=== PATIENT | male | born 1975 | race Caucasian/White ===

== ENCOUNTER 2020-02-18 13:37 | Emergency (ER) | payer OTHER ==
[~2020-02-18 13:37] MED LIST: ALPRAZOLAM0.5 MG PO; CYCLOBENZAPRINE5 MG PO; FLEXERIL 10 MG10 MG PO; NAPROSYN500 MG PO; PROVENTIL HFA6.7 GM INH; Voltaren Gel 1 % TOP
== END 2020-02-18 13:48 | disposition left against medical advice (07) ==
LOC: ER1 13:37
DX: M25.511 Pain in right shoulder (principal); M54.9 Dorsalgia, unspecified; Z53.21 Procedure and treatment not carried out due to patient leaving prior to being seen by health care provider

== ENCOUNTER 2020-03-24 15:32 | Emergency (ER) | payer OTHER | END 2020-03-24 16:00 | disposition left against medical advice (07) | LOC: ER1 15:32 | DX: H92.01 Otalgia, right ear (principal); Z53.21 Procedure and treatment not carried out due to patient leaving prior to being seen by health care provider ==

== ENCOUNTER 2020-03-26 16:31 | Emergency (ER) | payer OTHER ==
[2020-03-26 17:36] LABS: HEMOGLOBIN 16.9 gm/dl (14.0-17.5); RED BLOOD COUNT 5.38 M/UL (4.20-5.50); WHITE BLOOD COUNT 9.3 K/UL (4.5-11.0)
[2020-03-26 18:39] LABS: BUN/CREATININE RATIO 9 (0-10)
[2020-03-26] MEDS ORDERED: COLACE100 MG PO (19:41)
[2020-03-26] MEDS ORDERED: XYLOCAINE 2% JE30 ML TOP (19:41)
[2020-03-28 11:14] LABS: HBSAG SCREEN Negative (Negative); HEP A AB, IGM Negative (Negative); HEP B CORE AB, IGM Negative (Negative); HEP C VIRUS AB <0.1 (0.0-0.9)
== END 2020-03-26 19:57 | disposition home or self-care (01) ==
LOC: ER1 16:31
PROVIDERS: Emergency Medicine
DX: K60.2 Anal fissure, unspecified (principal); R10.30 Lower abdominal pain, unspecified; R06.02 Shortness of breath; J45.909 Unspecified asthma, uncomplicated; Z90.49 Acquired absence of other specified parts of digestive tract
CPT/HCPCS: 36415; 71045; 80053; 80074; 81001; 82550; 82553; 83690; 83874; 83880; 84484; 85025; 85379; 96374; 99284; J2060; Q9967

== ENCOUNTER 2020-03-29 14:29 | Emergency (ER) | payer OTHER ==
[~2020-03-29 14:29] MED LIST changes: +COLACE100 MG PO; +XYLOCAINE 2% JE30 ML TOP
[2020-03-29 16:37] LABS: RED BLOOD COUNT 5.38 M/UL (4.20-5.50); WHITE BLOOD COUNT 8.7 K/UL (4.5-11.0)
[2020-03-29 17:03] LABS: BUN/CREATININE RATIO 12 (0-10)
== END 2020-03-29 17:54 | disposition home or self-care (01) ==
LOC: ER1 14:29
PROVIDERS: Emergency Medicine
DX: R10.84 Generalized abdominal pain (principal); K62.5 Hemorrhage of anus and rectum; R11.0 Nausea; R19.7 Diarrhea, unspecified
CPT/HCPCS: 36415; 80053; 82272; 83690; 85025; 85610; 85730; 99284

== ENCOUNTER 2020-12-27 11:02 | Emergency (ER) | payer OTHER ==
[2020-12-27 12:01] LABS: HEMOGLOBIN 17.2 gm/dl (14.0-17.5); RED BLOOD COUNT 5.44 M/UL (4.20-5.50); WHITE BLOOD COUNT 8.6 K/UL (4.5-11.0)
[2020-12-27 12:35] LABS: BUN/CREATININE RATIO 13 (0-10)
== END 2020-12-27 12:46 | disposition home or self-care (01) ==
LOC: ER1 11:02
PROVIDERS: Emergency Medicine
DX: R10.32 Left lower quadrant pain (principal); R10.31 Right lower quadrant pain; R74.01 Elevation of levels of liver transaminase levels
CPT/HCPCS: 80053; 85025; 86140; 99284

== ENCOUNTER 2020-12-28 10:22 | Emergency (ER) | payer OTHER | END 2020-12-28 13:36 | disposition home or self-care (01) | LOC: ER1 10:22 | DX: R10.9 Unspecified abdominal pain (principal); R10.814 Left lower quadrant abdominal tenderness | CPT/HCPCS: 99284; J2270; J2405; Q9967 ==

== ENCOUNTER → 2020-12-29 | Outpatient (CLI) | payer OTHER ==
[2020-12-29 12:37] LABS: HEMOGLOBIN 16.6 gm/dl (14.0-17.5); RED BLOOD COUNT 5.59 M/UL (4.20-5.50); WHITE BLOOD COUNT 8.1 K/UL (4.5-11.0)
[2020-12-29 12:53] LABS: BUN/CREATININE RATIO 9 (0-10)
== END ==
LOC: RT 11:41
PROVIDERS: Colon & Rectal Surgery
DX: Z01.818 Encounter for other preprocedural examination (principal); K60.1 Chronic anal fissure
CPT/HCPCS: 36415; 80048; 85027; 93005

== ENCOUNTER 2021-04-09 06:57 | Emergency (ER) | payer OTHER ==
[2021-04-09 07:53] LABS: HEMOGLOBIN 15.8 gm/dl (14.0-17.5); RED BLOOD COUNT 5.12 M/UL (4.20-5.50); WHITE BLOOD COUNT 7.3 K/UL (4.5-11.0)
[2021-04-09 08:22] LABS: BUN/CREATININE RATIO 9 (0-10)
[2021-04-09] MEDS ORDERED: LISINOPRIL10 MG PO (15:31)
[2021-04-09] MEDS ORDERED: COLACE100 MG PO (15:31)
[2021-04-09] MEDS ORDERED: NAPROSYN500 MG PO (15:31)
== END 2021-04-09 09:15 | disposition left against medical advice (07) ==
LOC: ER1 06:57
PROVIDERS: Physician Assistant
DX: R10.30 Lower abdominal pain, unspecified (principal); I10 Essential (primary) hypertension
CPT/HCPCS: 80053; 82550; 82553; 83874; 84484; 85025; 93005; 99283; Q9967

== ENCOUNTER 2021-04-09 09:35 | Emergency (ER) | payer OTHER ==
[2021-04-09] MEDS ORDERED: NAPROSYN500 MG PO (15:31)
[2021-04-09] MEDS ORDERED: LISINOPRIL10 MG PO (15:31)
[2021-04-09] MEDS ORDERED: COLACE100 MG PO (15:31)
== END 2021-04-09 16:00 | disposition home or self-care (01) ==
LOC: ER1 09:35
DX: K62.5 Hemorrhage of anus and rectum (principal); K60.2 Anal fissure, unspecified; I10 Essential (primary) hypertension; F41.9 Anxiety disorder, unspecified
CPT/HCPCS: 81001; 99284; J1885; Q9967

== ENCOUNTER → 2021-04-14 | Outpatient (CLI) | payer OTHER ==
[~2021-04-14] MED LIST changes: +LISINOPRIL10 MG PO
[2021-04-14 12:52] LABS: BUN/CREATININE RATIO 16 (0-10)
== END ==
LOC: LAB 11:53
PROVIDERS: Family Medicine
DX: I10 Essential (primary) hypertension (principal)
CPT/HCPCS: 36415; 80053; 80061; 83735

== ENCOUNTER 2021-11-14 17:13 | Emergency (ER) | payer OTHER ==
[~2021-11-14 17:13] MED LIST changes: +OMNICEF 300 MG300 MG PO; +PROCTOSOL-HC28.35 GM PR
[2021-11-14 17:51] LABS: HEMOGLOBIN 16.3 gm/dl (14.0-17.5); RED BLOOD COUNT 5.15 M/UL (4.20-5.50); WHITE BLOOD COUNT 12.5 K/UL (4.5-11.0)
[2021-11-14 19:00] LABS: BUN/CREATININE RATIO 14 (0-10)
[2021-11-14] MEDS ORDERED: ASPIRIN CHEWABL81 MG PO (19:46)
[2021-11-14] MEDS ORDERED: ATIVAN0.5 MG PO (21:37)
== END 2021-11-14 21:55 | disposition home or self-care (01) ==
LOC: ER1 17:13
PROVIDERS: Emergency Medicine
DX: I47.1 Supraventricular tachycardia (principal); F41.9 Anxiety disorder, unspecified; I10 Essential (primary) hypertension
CPT/HCPCS: 71045; 80053; 82550; 82553; 84439; 84443; 84484; 85025; 85379; 85610; 85730; 93005; 96374; 96375; 99285; J0153; J2250